=== PATIENT | female | born 1995 | race Caucasian/White ===

== ENCOUNTER → 2016-10-30 | Outpatient (CLI) | payer BC ==
[~2016-10-30] MED LIST: ADVAIR 10028 PUFF/IN IH
--- NOTE | 2016-10-31 00:03 | RADIOLOGY REPORT PS360 ---
CHEST(2 VIEWS-NOT PORTABLE) Ordering physician: Dio Genao MD Age: 21 years Female INDICATION: chest symptomsPPD POSITIVE PROCEDURE: CHEST(2 VIEWS-NOT PORTABLE) COMPARISON to previous chest film 12/25/2014 no significant interval change FINDINGS: No prior Lungs well expanded and clear with nothing definitely acute. . No evidence of active TB No pneumothorax. No pleural effusion. Heart normal size. Normal pulmonary vascularity. Hilar and mediastinal structures appear satisfactory. Chest wall unremarkable. T-spine intact. IMPRESSION ----- Lungs clear No active disease
== END ==
LOC: RAD 13:52
DX: R76.11 Nonspecific reaction to tuberculin skin test without active tuberculosis (principal)